=== PATIENT | male | born 1995 | race Asian ===

== ENCOUNTER 2022-09-01 22:51 | Emergency (ER) | payer SELFPAY ==
[~2022-09-01] VITALS: Ht 182.9 cm; Wt 77.1 kg
[2022-09-01 23:00] VITALS: BP 138/80
--- NOTE | 2022-09-01 23:03 | NUR ---
DR. WALDEN AT BEDSIDE.
--- NOTE | 2022-09-01 23:24 | NUR ---
PT DC TO HOME. PT AOX4 DENIES ANY PAIN. WOUND IS SUPERFICIAL, CLEANSED. D/C INSTRUCTIONS GIVEN, VERBALIZES UNDERSTANDING.
== END 2022-09-01 23:27 | disposition home or self-care (01) ==
LOC: ER 22:53
DX: S01.01XA Laceration without foreign body of scalp, initial encounter (principal); I10 Essential (primary) hypertension; W22.8XXA Striking against or struck by other objects, initial encounter; Y93.89 Activity, other specified; Y92.89 Other specified places as the place of occurrence of the external cause; Y99.8 Other external cause status